=== PATIENT | male | born 1955 | race Caucasian/White ===

== ENCOUNTER → 2017-06-24 | Outpatient (CLI) | payer OTHER ==
--- NOTE | 2017-06-24 12:04 | RAD ---
2 view CXR: Clinical indications: Bronchitis and wheezing and cough for one week. Comparison: August 03, 2012. Findings: No acute lung infiltrate or pleural effusion or pulmonary edema or lung mass or pneumothorax is seen. The heart size, pulmonary vasculature, mediastinum and both zoe are unremarkable. The osseous structures appear intact. Impression: No acute radiographic abnormality is seen.
== END | disposition home or self-care (01) ==
LOC: DXRADRC 08:03
PROVIDERS: ATTEND Physician Assistant Medical
DX: R06.2 Wheezing (principal); R05 Cough; J40 Bronchitis, not specified as acute or chronic
CPT/HCPCS: 71020

== ENCOUNTER 2019-03-14 10:45 | Emergency (ER) | payer OTHER ==
[~2019-03-14] VITALS: Ht 190.5 cm; Wt 96.2 kg
[2019-03-14] MEDS ORDERED: IV NORMAL SALINE 1,000ML 1,000 ML IV SCH (10:57)
[2019-03-14] MEDS ORDERED: HEPARIN 25,000UTS/500ML PREMIX 500 ML IV ONE (11:00)
[2019-03-14] MEDS ORDERED: MORPHINE SULFATE 4 MG/ML DISP.SYRIN. IV/SQ PRN (11:00)
[2019-03-14 11:04] VITALS: BP 143/75
[2019-03-14] MEDS ORDERED: ONDANSETRON PF 4 MG/2 ML VIAL. ONE (11:04)
[2019-03-14 11:11] LABS: BASO # 0.1 x10^3/uL (0.0-0.2); BASO % 1 % (0-3); EOS # 0.2 x10^3/uL (0.0-0.7); EOS % 3 % (0-3); HEMATOCRIT 43.3 % (39.0-53.0); HEMOGLOBIN 14.7 g/dL (13.0-17.5); LYMPH # 1.7 x10^3/uL (1.0-4.8); LYMPH % 20 % (24-48); MEAN CORPUSCULAR HEMOGLOBIN 33 pg (25-35); MEAN CORPUSCULAR HGB CONC 34 g/dL (31-37); MEAN CORPUSCULAR VOLUME 97 fL (79-100); MONO # 0.7 x10^3/uL (0.0-1.1); MONO % 8 % (0-9); NEUT % 69 % (31-73); PLATELET COUNT 252 x10^3/uL (140-400); RED BLOOD COUNT 4.48 x10^6/uL (4.30-5.70); RED CELL DISTRIBUTION WIDTH 12.8 % (11.5-14.5); WHITE BLOOD COUNT 8.7 x10^3/uL (4.0-11.0)
--- NOTE | 2019-03-14 11:22 | PHYS DOC ---
Adult General Chief Complaint Chief Complaint: CHEST PAIN HPI HPI Patient is a 63-year-old male who presents with report of chest pain that started at about 9:00 this morning when he first awoke. Patient states that he had gotten up out of bed to go to the bathroom when he developed a crushing substernal chest pain that radiated to both axillae. At that time he states that pain was a 10 out of 10. He states that he felt like he had a lot of indigestion and had belched a few times but had no improvement in symptoms. He states that he did his best to relax and ultimately got to the emergency room. Currently he rates his pain to be about a 4 out of 10. He states that the pain seemed to be worsened with exertion but is not sure what has made the pain better. Patient denies any cardiac history.[] Review of Systems Review of Systems Constitutional: Denies fever or chills [] Respiratory: Denies cough or shortness of breath [] Cardiovascular: No additional information not addressed in HPI [] GI: Denies abdominal pain, nausea, vomiting or diarrhea [] Integument: Denies rash or skin lesions [] Neurologic: Denies headache, focal weakness or sensory changes [] All other systems were reviewed and found to be within normal limits, except as documented in this note. Current Medications Current Medications Current Medications Medications (Trade) Dose Ordered Sig/Kelechi Start Time Stop Time Status Last Admin Dose Admin Aspirin (Children'S Aspirin) 324 mg 1X ONCE 03/14/19 11:30 03/14/19 11:31 Heparin Sodium (Porcine) (Heparin Sodium) 4,000 unit 1X ONCE 03/14/19 11:30 03/14/19 11:31 Heparin Sodium/ Dextrose 500 ml @ 20 mls/hr 1X ONCE 03/14/19 11:00 03/15/19 11:59 Morphine Sulfate (Morphine 4mg Syringe) 4 mg PRN Q15MIN PRN 03/14/19 11:00 03/15/19 10:59 Ondansetron HCl (Zofran) 4 mg STK-MED ONCE 03/14/19 11:04 03/14/19 11:05 DC Sodium Chloride 1,000 ml @ 1,000 mls/hr Q1H 03/14/19 10:57 03/14/19 11:56 Allergies Allergies Allergies Coded Allergies Type Severity Reaction Last Updated Verified No Known Drug Allergies 03/14/19 No Physical Exam Physical Exam Constitutional: Well developed, well nourished, no acute distress, non-toxic appearance. [] HENT: Normocephalic, atraumatic, bilateral external ears normal, oropharynx moist, no oral exudates, nose normal. [] Eyes: PERRLA, EOMI, conjunctiva normal, no discharge. [] Neck: Normal range of motion, no tenderness, supple, no stridor. [] Cardiovascular: Bradycardic rate with regular rhythm[] Lungs & Thorax: Bilateral breath sounds clear to auscultation [] Abdomen: Bowel sounds normal, soft, no tenderness. [] Skin: Warm, dry, no erythema, no rash. [] Extremities: No tenderness, no cyanosis, no clubbing, ROM intact, no edema. [] Neurologic: Alert and oriented X 3, no focal deficits noted. [] EKG EKG EKG demonstrates ventricular bigeminy with rate of 50.[] Radiology/Procedures Radiology/Procedures [] Impressions: Chest x-ray demonstrates no acute process. Course & Med Decision Making Course & Med Decision Making Pertinent Labs and Imaging studies reviewed. (See chart for details) Patient moved to room upon arrival was evaluated by your medical staff after which a cardiac workup was initiated on this patient. EKG demonstrated a ventricular bigeminy and shortly after initial evaluation, patient's rhythm had abruptly changed to an accelerated junctional rhythm with significant widening of QRS complex. Total of 3 EKGs were obtained and on third EKG, patient noted to have changes to inferior leads of 3 and aVF with tombstone appearance. At this point, cardiology was consulted at [facility] and Dr. Ontiveros will take patient to [facility]. I have discussed patient's case with Dr. William who is in agreement with transfer of this patient. Patient was initiated on heparin protocol. While EKG does not represent exact criteria for STEMI, I do feel that this patient's case represents an acute coronary syndrome and I am concerned that we will see ST elevations in the very near future, just necessitating urgent transfer of this patient to cardiac [facility]. Dragon Disclaimer Dragon Disclaimer This electronic medical record was generated, in whole or in part, using a voice recognition dictation system. Departure Departure: Impression: Primary Impression: Acute coronary syndrome Disposition: [facility] Admitting Physician: Meagan William Condition: GUARDED Referrals: JOSE ARMANDO DUNCAN (PCP) JEANMARIE JACKSON Jr. DO Mar 14, 2019 11:22
--- NOTE | 2019-03-14 11:28 | RAD ---
AP portable chest radiograph 03/14/2019 Clinical History: Chest pain. An AP erect portable digital radiograph of the chest was obtained. The cardiac silhouette is normal in size. The thoracic aorta is mildly tortuous. No acute pulmonary infiltrate is seen. No pleural effusion or pneumothorax is noted. Degenerative changes are seen involving the thoracic spine. IMPRESSION: No acute abnormality is seen. Electronically signed by: Ezekiel Logan MD (03/14/2019 11:25 AM) [place] [id number]
[2019-03-14] MEDS ORDERED: ASPIRIN 81 MG TAB.CHEW PO ONE (11:30)
[2019-03-14] MEDS ORDERED: HEPARIN for IV BOLUS 10,000 UNIT/10 ML VIAL. IV ONE (11:30)
[2019-03-14 11:34] LABS: ALBUMIN 3.8 g/dL (3.4-5.0); ALBUMIN/GLOBULIN RATIO 1.2 (1.0-1.7); CALCIUM 8.7 mg/dL (8.5-10.1); CREATININE 0.9 mg/dL (0.7-1.3); MAGNESIUM 1.7 mg/dL (1.8-2.4); POTASSIUM 3.5 mmol/L (3.5-5.1); TOTAL BILIRUBIN 0.9 mg/dL (0.2-1.0)
== END 2019-03-14 11:30 | disposition short-term general hospital (02) ==
LOC: ER 10:45
DX: I24.9 Acute ischemic heart disease, unspecified (principal)
CPT/HCPCS: 36415; 71045; 80053; 83690; 83735; 83880; 84484; 85025; 93005; 96374; 99285; J1644; J7030

== ENCOUNTER → 2020-05-14 | Outpatient (CLI) | payer MEDICARE, OTHER ==
--- NOTE | 2020-05-15 10:10 | CARD ---
MR#: [id number] Date of Study: 05/14/2020 Ordering Physician: SIVA LINDER, Referring Physician: SIVA LINDER, Tech: Ashleigh Escamilla APPROVED REPORT EXAM: Two-dimensional and M-mode echocardiogram with Doppler and color Doppler. Other Information Quality : AverageHR: 48bpm INDICATION Chest Pain 2D DIMENSIONS RVDd3.5 (2.9-3.5cm)Left Atrium(2D)4.5 (1.6-4.0cm) IVSd1.0 (0.7-1.1cm)Aortic Root(2D)3.4 (2.0-3.7cm) LVDd6.2 (3.9-5.9cm)LVOT Diameter2.3 (1.8-2.4cm) PWd1.1 (0.7-1.1cm)LVDs5.1 (2.5-4.0cm) FS (%) 18.2 %SV70.9 ml LVEF(%)36.9 (>50%) Aortic Valve AoV Peak Karthik.121.7cm/sAoV VTI29.5cm AO Peak GR.5.9mmHgLVOT Peak Karthik.96.9cm/s LVOT VTI 22.39cmAO Mean GR.3mmHg TIMOTHY (VMAX)3.65km1PEQ (VTI)3.07cm2 Mitral Valve MV E Yiciytpx92.5cm/sMV E Peak Gr.4mmHg MV DECEL [id number] A Kkxsheej98.4cm/s MV E Mean Gr.2mmHgE/A Ratio1.9 Pulmonary Valve PV Peak Ndupdpsk31.7cm/sPV Peak Grad.2mmHg Tricuspid Valve TR P. Fqjbsepa827cg/sRAP KGNKPGBN2frHx TR Peak Gr.46rdLtGCHG20thYn Pulmonary Vein S1 Pztgdiav69.6cm/sD2 Dtdwodjp23.9cm/s LEFT VENTRICLE The Left Ventricle is mildly dilated. There is normal left ventricular wall thickness. The left ventr icular systolic function is normal and the ejection fraction is within normal range. EF 55% There is normal LV segmental wall motion. Tissue Doppler imaging reveals moderate left ventricular diastolic d ysfunction. RIGHT VENTRICLE The right ventricle is mildly dilated. There is normal right ventricular wall thickness. The right ve ntricular systolic function is normal. ATRIA The left atrium is mildly dilated. The right atrium is borderline dilated. The interatrial septum is intact with no evidence for an atrial septal defect or patent foramen ovale as noted on 2-D or Dopple r imaging. AORTIC VALVE The aortic valve is normal in structure and function. Doppler and Color Flow revealed no significant aortic regurgitation. There is no significant aortic valvular stenosis. MITRAL VALVE The mitral valve is normal in structure and function. A borderline mitral valve prolapse is present. There is no mitral valve stenosis. Doppler and Color-flow revealed trace mitral regurgitation. TRICUSPID VALVE The tricuspid valve is normal in structure and function. Doppler and Color Flow revealed trace tricus pid regurgitation with an estimated PAP of 42 mmHg. There is no tricuspid valve stenosis. PULMONIC VALVE The pulmonic valve is not well visualized. Doppler and Color Flow revealed trace pulmonic valvular re gurgitation. There is no pulmonic valvular stenosis. GREAT VESSELS The aortic root is normal in size. The IVC is dilated. PERICARDIAL EFFUSION There is no evidence of significant pericardial effusion. Critical Notification Critical Value: No <Conclusion> The left ventricular systolic function is normal and the ejection fraction is within normal range. EF 55% There is normal LV segmental wall motion. Signed by : Lenny Suggs, Electronically Approved : 05/15/2020 10:10:07
== END | disposition home or self-care (01) ==
LOC: ECHO 10:26
PROVIDERS: ATTEND Internal Medicine Cardiovascular Disease
DX: R07.9 Chest pain, unspecified (principal)
CPT/HCPCS: 93306

== ENCOUNTER → 2021-06-05 | Outpatient (CLI) | payer MEDICARE ==
--- NOTE | 2021-06-06 00:07 | RAD ---
EXAM: 3 views of the left foot DATE: 06/05/2021 1:25 PM INDICATION: Reason: LEFT 2ND HAMMERTOE / Spl. Instructions: / History: COMPARISON: No Prior FINDINGS: No acute fracture or dislocation. Midfoot degenerative changes with joint space narrowing and cystic change. Flexion of the second toe. No significant soft tissue swelling. Pes planus. Calcaneal entheso phytes. IMPRESSION: 1. No acute fracture or dislocation. 2. Pes planus. 3. Midfoot degenerative change. 4. Second toe flexion, hammertoe Electronically signed by: Lucio Calderon MD (06/06/2021 12:05 AM) [place]
== END ==
LOC: RAD 13:11
PROVIDERS: ATTEND Podiatrist Foot Surgery
DX: M19.072 Primary osteoarthritis, left ankle and foot (principal); M21.42 Flat foot [pes planus] (acquired), left foot; M20.42 Other hammer toe(s) (acquired), left foot
CPT/HCPCS: 73630